=== PATIENT | female | born 1995 | race Caucasian/White ===

== ENCOUNTER → 2021-04-13 15:39 | Outpatient (CLI) | payer OTHER, SELFPAY ==
--- NOTE | 2021-04-13 18:01 | DIET.PN ---
Initial Gestational Diabetes Assessment Name: Jenise Shen Date: 04/13/21 Time: 1545-1700pm Dx: Gestational Diabetes YAIR: 05/22/21 P:1 Weeks: 34 Provider: Estefani Brown PMH: PCOS Jenise presents today for initial diabetes education. She has been checking blood sugars and made nutrition changes. Most meals are within carb goal. Some meals low in protein and vegetables. Lunch seems to be largest meal of the day, resulting in some elevated glucose. States this is often when she ?overeats? carb portions. Has some nutrition questions about reflux. Soon after OGTT she switched care from [place] to [facility]. States she is much happier with care, despite not being ideal to change care in third trimester. No DM ed previous to today. Has questions about BG goals and hypoglycemia. Sometimes experiencing high 60s mg/dL as fasting numbers. Not sure if she is feeling symptoms or not feeling well r/t poor sleep. Diet Recall: 630a: egg sausage sandwich or burrito or ? biscuit with gravy 930-1130a: salad or 2 cutie oranges 5992-4045: 1c (or more some days) pasta with beef or fish with 1/2c rice (or more) or ?-3/4c beans with veg and ham 1400: trail mix or hot pocket (70g CHO) 7422-2956: beef burritos or pizza or same as lunch Beverages 5L water Anthropometrics: Ht: 5? Wt: 172# prepg wt: 152# Wt changes: +30# Recs: Sustain current weight Physical Activity: walks dogs in afternoon for 30-60 min. sedentary work day. c/o knee pain. H/o PT for knee which helped. Interested in trying PT exercises with resistance bands for knee. Self-Monitoring Blood Glucose: All FBG in goal. All after breakfast and dinner readings within goal. 2/7 elevated pc lunch readings r/t higher carb intake, possible lower protein intake. No recent hypoglycemia. Date Pre Post Pre Post Pre Post 04/07 76 117 136 124 8/1 77 110 129 121 8/2 77 109 164 H 120 8/3 73 87 140 94 8/4 74 97 150 H 98 8/5 70 119 129 91 8/6 78 111 111 Labs: 3 hr OGTT 85, 209 H, 220 H, 97 Medications: PNV Recommendations: Carbohydrates: Daily: 180-195g Meal: 45-60g lunch and dinner; 30g breakfast Snack: 15-30g Nutrition Diagnosis: - Altered nutrition related lab value r/t GDM dx aeb recent OGTT - Excessive carb intake r/t nutrition knowledge deficit around carb counting aeb diet recall and elevated BG - Inconsistent protein intake r/t nutrition knowledge deficit aeb diet recall and elevated BG Intervention: This participant was very receptive. Provided appropriate educational handouts. Discussed the following topics: - GDM pathophyiology and impact of hyperglycemia on mom and baby - Risk for T2DM for mom and baby in the future - PCOS impact on insulin resistance - hypoglycemia s/s - Plate Method, meal timing, carb counting, pairing macronutrients and spreading out CHO for better BG mgmnt - Adding vegetables more consistently - BG goals (FBG: <95 and 1 hour <140 mg/dL); importance of checking BG 4x per day (FBG and pc) - Impact of macronutrients on BG - Rec servings for CHO at meals and snacks - Brainstormed appropriate meal plan based on her food preferences - Role of physical activity and following provider guidelines for safety - ways to reduce reflux, etiology of reflux during Goals: - Have protein with each meal and snack - Measure carb portions, especially at lunch - Try resistance exercises safely Follow-up: [facility] follow-up in two weeks Next visit topics: OGTT, HgA1c, reducing risk Vivian Arboleda RDN, BRITTANEY Certified Diabetes Care and Artificial Foliage Arranger T: [phone] F: [phone] [email or web address] Thank you for this referral :
== END ==
PROVIDERS: PCP Nurse Practitioner Obstetrics & Gynecology; Referring Provider Nurse Practitioner Obstetrics & Gynecology; Visit Provider Nurse Practitioner Obstetrics & Gynecology
DX: O24.419 Gestational diabetes mellitus in pregnancy, unspecified control (principal); Z3A.34 34 weeks gestation of pregnancy; Z71.3 Dietary counseling and surveillance
CPT/HCPCS: G0108

== ENCOUNTER → 2021-04-24 14:03 | Outpatient (CLI) | payer OTHER, SELFPAY ==
--- NOTE | 2021-04-24 14:05 | DIET.PN ---
Gestational Diabetes Assessment Name: Jenise Shen Date: 04/24/21 Time: 6429-7067 Dx: Gestational Diabetes YAIR: 05/22/21 P:0 Weeks: 36 Provider: Estefani Brown PMH: PCOS Jenise presents today for follow-up diabetes education. States she has been pairing protein and carb for snacks. Increased cheese intake, which has impacted reflux. Taking Pepcid, which helps. Had one elevation recently after breakfast (cereal, no protein). States she plans to breastfeed. Carb intake seems to range from 165-190g per day. Sometimes skipping carbs at breakfast. Has started her leave from work. Anthropometrics: Ht: 5? Wt: 175# prepg wt: 152# Wt changes: +30# Recs: Sustain current weight Physical Activity: Resistance bands packed right now so has not tried using. Using a supportive band for knee pain, which has helped. Feeling heavier at this stage of . Experiencing lightening crotch and tightness with walks. Less walking recently. Endorses good hydration, 90-120oz water daily. Self-Monitoring Blood Glucose: All but one pc reading within range. Date Pre Post Pre Post Pre Post 04/18 74 155 cereal 88 103 04/19 72 110 110 105 04/20 78 119 106 99 04/21 77 123 78 124 04/22 73 110 141 04/23 74 93 110 102 04/24 72 83 101 Labs: 3 hr OGTT 85, 209 H, 220 H, 97 Medications: PNV Recommendations: Carbohydrates: Daily: 180-195g Meal: 45-60g lunch and dinner; 30g breakfast Snack: 15-30g Intervention: This participant was very receptive. Provided appropriate educational handouts. Discussed the following topics: - Review of pairing protein and carb and impact on BG - Options for protein adding to cereal - Plate Method - Physical activity safety - recommendations: blood sugar checks, OGTT, HgA1c - Ways to reduce chances of T2DM for mom and baby: nutrition, phys activity, - What is HgA1c - Risk GDM in future pregnancies Goals: - Have protein with each meal and snack -75% met - Measure carb portions, especially at lunch- met - Try resistance exercises safely- not met - Get OGTT 6-12 weeks - check BG 6 weeks : 2 x per week (fasting goal <100 and 2 hour pc <140 mg/dL) - HgA1c q 1-3 years Follow-up: [facility] follow-up coltonn Vivian Arboleda, EVA, BRITTANEY Certified Diabetes Care and Director Of Instrumental Music T: [phone] F: [phone] [email or web address] Thank you for this referral
== END ==
PROVIDERS: PCP Nurse Practitioner Obstetrics & Gynecology; Referring Provider Nurse Practitioner Obstetrics & Gynecology; Visit Provider Nurse Practitioner Obstetrics & Gynecology
DX: O24.419 Gestational diabetes mellitus in pregnancy, unspecified control (principal); Z3A.36 36 weeks gestation of pregnancy; Z71.3 Dietary counseling and surveillance
CPT/HCPCS: G0108

== ENCOUNTER → 2021-04-28 10:15 | Outpatient (ROUT) | payer OTHER, SELFPAY | PROVIDERS: PCP Nurse Practitioner Obstetrics & Gynecology; Visit Provider Nurse Practitioner Obstetrics & Gynecology | DX: Z34.90 Encounter for supervision of normal pregnancy, unspecified, unspecified trimester (principal); Z36.85 Encounter for antenatal screening for Streptococcus B; Z3A.36 36 weeks gestation of pregnancy | CPT/HCPCS: 87081 ==

== ENCOUNTER 2021-05-21 16:22 | Inpatient (IN) | payer OTHER, SELFPAY ==
--- NOTE | 2021-05-21 17:11 | P.HPOB_ITS ---
OB HPI Date/Time Date of admission: 05/21/21 Date Patient Seen: 05/21/21 Time Patient Seen: 17:11 History of Present Condition Chief complaint: OBSERVATION : 1 Para: 0 Estimated Date of Delivery: 05/22/21 Estimated Gestational Age (weeks): 39.6wk Narrative: Jenise Shen is a 25 year old female @ 39wks 6days by early US. Contractions started last might that v steadily progressed in frequency and intensity. Lots of FM. no VB or LOF. Transferred in to [facility] care @ [address] [facility]. 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 Was followed by [facility] for serial growth ultrasounds which she declined after 32 weeks. Growth has been appropriate overall with limbs in the 1-2%. Jenise desires a low intervention and her partner, Lambert is present and supportive. History of Present care: good care, initiated at week # (8) and pounds weight gain (28) Dating criteria: based on 1st trimester US only Ultrasounds: normal 1st trimester US, normal mid trimester US and abnormal US findings (FL <1%, HL 2%) Obstetrical complications: gestational diabetes (GDMA1) Medical complications: none Preadmission Labs Blood type: O (+) positive -: Antibody screen: negative, GBS status: negative, HBsAG: negative, HIV: negative and RPR/VDLR: negative -: Rubella: immune and Varicella: immune HCT: 30.4 HCAB: negative 3 hr GTT: 3 hr (85/209/220/97) Evaluation Evaluation Baseline heart rate: 150 Variability: Moderate (11-25) monitor accelerations: Absent Monitor Decelerations: Absent Contraction Frequency (minutes): 4 Uterine Contraction Intensity: Moderate Category of Tracing: Reactive Status: Category l Cervical dilation (cm): 4 Cervical effacement (%): 80 station: -2 PFS Medical History (Updated 05/21/21 @ 17:49 by Estefani Orr CNM) Anemia affecting first Gestational diabetes mellitus (GDM) affecting , antepartum History of PCOS Social History (Updated 05/21/21 @ 17:46 by Estefani Orr CNM) marital status: unmarried,living together household members: significant other lives independently: Yes caregiver/support person: No Smoking Status: Never smoker substance use type: does not use Meds Home Medications and Allergies Home Medications Medication Instructions Recorded Confirmed Type ferrous sulfate 325 mg (65 mg mg 05/21/21 History iron) tablet (FeroSul) Allergies Allergy/AdvReac Type Severity Reaction Status Date / Time No Known Drug Allergies Allergy Verified 05/21/21 17:47 Review of Systems Review of Systems ROS: Yes All systems reviewed with the patient and are negative except as otherwise documented Exam Vital Signs (past 8 hours): BP 108/69mmHg, HR 106bpm, T 36.5C Temporal Presentation: vertex Objective Labs Result Diagrams: 05/21/21 17:50 Labs: SARS-CoV-2: negative Assessment and Plan Assessment and Plan Assessment and Plan narrative: A: Term [place] Approaching active labor Fetus with shortened limbs, otherwise normal US findings No indication for GBS prophylaxis Cat I FHR P: Admit, routine orders. May switch to intermittent auscultation. Labor support, PRN. Reassess in 4 hours or sooner, PRN. Consulted Peds OC/ and notified her of US findings.
[2021-05-21 18:04] LABS: Add Manual Diff / Slide Review NO; Basophils Absolute Auto 0 /uL (0-100); Basophils Percent Auto 0.2 % (0-2); Eosinophils Absolute Auto 0 /uL (0-450); Eosinophils Percent Auto 0.1 % (2-4); Hematocrit 33.1 % (36-46); Hemoglobin 11.5 g/dL (12.0-16.0); Lymphocytes Absolute Auto 1200 /uL (1100-4500); Mean Corpuscular HGB Conc 34.7 % (30-36); Mean Corpuscular Hemoglobin 31.1 PG (26-34); Mean Corpuscular Volume 89.8 fL (80-100); Monocytes Absolute Auto 1000 /uL (0-900); Monocytes Percent Auto 8.7 % (3-14); Neutrophils Absolute Auto 8700 /uL (1500-7000); Platelet Count 186 X10^3/uL (150-400); Red Blood Cell Count 3.69 X10^6/uL (4.0-5.2); Red Cell Distribution Width 12.6 % (11.6-14.8); White Blood Cell Count 10.9 X10^3/uL (4.5-11.0)
[2021-05-21 18:44] LABS: COVID19 - ADMIT (NP swab/PCR) Negative (Negative)
--- NOTE | 2021-05-21 19:20 | PM.OBPNLAB ---
Date/Time Date Patient Seen: 05/21/21 Time Patient Seen: 19:20 Pain Control Pain control: tolerating well Comments: Breathing through regular contractions. A little frustrated that things are progressing slowly, but coping well. No VB or LOF. Pelvic Exam Dilation (cm): 4.5 Effacement (%): 85 station: -2 Contractions Contractions on admission: regular Monitor mode: External Pitocin rate (mU/min): 0 Contraction frequency (min): 4 Contraction duration (min): 1 Contraction pattern: Regular Contraction intensity: Moderate Status status: Category l Heart Rate Baseline: 150 Monitor Accelerations: Present Monitor Decelerations: Absent Monitor Variability: Moderate Assessment and Plan Assessment: other (Approaching active labor) Plan: continuous present management
--- NOTE | 2021-05-21 23:58 | PM.OBPNLAB ---
Date/Time Date Patient Seen: 05/21/21 Time Patient Seen: 23:58 Pain Control Pain control: tolerating well Comments: Jenise is laboring in bed, breathing well through contractions with supportive partner at bedside. Has labored in tub and on ball. Jenise reports contractions became more intense in tub prior to getting into bed. Is considering requesting AROM and is interested in ways to speed labor. BP: 113/75 mmHg, HR: 101 bpm, T: 36.2 c temporal Pelvic Exam Dilation (cm): 5 Effacement (%): 90 station: -2 Amniotic membrane status: Intact Contractions Monitor mode: External Contraction frequency (min): 4 Contraction duration (min): 80 Contraction pattern: Regular Contraction intensity: Moderate Status status: Category l Heart Rate Baseline: 150 Monitor Accelerations: Present Monitor Decelerations: Absent Monitor Variability: Moderate Comments: FHR has remained reassuring by intermittent auscultation Assessment and Plan Assessment: active labor Plan: continuous present management Comments: Jenise will try nitrous oxide for pain management now, may desire AROM if nitrous helps her cope with contractions. Anticipatory guidance given for risks and benefits of AROM, will preform if requested given SVE with head well applied to cervix. Will reassess in 4 hrs or sooner PRN
[2021-05-22] MEDS: LACTATED RINGERS 1,000 ML 100 ML IV ×2 (01:15→02:23)
--- NOTE | 2021-05-22 03:32 | PM.OBPNLAB ---
Date/Time Date Patient Seen: 05/22/21 Time Patient Seen: 03:32 Pain Control Pain control: epidural Comments: After using nitrous oxide for pain relief Jenise requested an epidural. Epidural was placed and she is now laboring in bed with moderate pain relief during contractions. Jenise wishes to sleep for the next hour and declines augmentation of her labor until then Pelvic Exam Dilation (cm): 5 Effacement (%): 100 station: -2 Amniotic membrane status: Intact Contractions Monitor mode: External Contraction frequency (min): 3 Contraction duration (min): 1 Contraction pattern: Regular Contraction intensity: Moderate Status status: Category l Heart Rate Baseline: 155 Monitor Accelerations: Present Monitor Decelerations: Absent Monitor Variability: Moderate Assessment and Plan Assessment: active labor Plan: continuous present management and begin patient augmentation Comments: Counseled on slow progress of labor and recommendation to start augmentation at this time. Will start pitocin in 1 hr. Reassess in 4 hrs or sooner prn.
[2021-05-22] MEDS: OXYTOCIN PREMIX 30 UNIT/500 ML PLAST..BAG IV (04:32)
[2021-05-22] MEDS: FENT 2MCG/ML BUPIV 0.125% EPI 200 MCG/100 ML PLAST..BAG 12 MCG EPIDURAL (06:56)
--- NOTE | 2021-05-22 07:13 | PM.OBPNLAB ---
Date/Time Date Patient Seen: 05/22/21 Time Patient Seen: 07:13 Pain Control Pain control: epidural (patchy on the lower left, has been working with anesthesia for improved labor analgesia) Comments: Jenise is in bed on her left side, breathing calmly through contractions. Continues to decline AROM. States pitocin has definitely made things strongr. BP 102/60mmHg, HR 98bpm, RR 18/min, T 36.6C Temporal. Pelvic Exam Dilation (cm): 7 Effacement (%): 100 station: -2 Amniotic membrane status: Bulging Contractions Contractions on admission: regular Monitor mode: External Pitocin rate (mU/min): 3 Contraction frequency (min): 2 Contraction duration (min): 1 Contraction pattern: Regular Contraction intensity: Moderate Status status: Category l Heart Rate Baseline: 150 Monitor Accelerations: Present Monitor Decelerations: Absent Monitor Variability: Moderate Assessment and Plan Assessment: active labor Plan: continuous present management
--- NOTE | 2021-05-22 11:38 | PM.OBPRVD ---
Events: Gestational Diabetes (GDMA1), Labor Augmentation and Meconium Stained Fluid Labor & Delivery Delivery date: 05/22/21 Intrapartal Events: None Cervical ripening method: none Induction method: none Delivery augmentation: pitocin Delivery monitor: external FHT and external uterine Route of delivery: L&D Laceration Description: Perineal - 1st Degree Delivery repair: chromic (3.0) Estimated blood loss (mL): 300 Anesthesia Type: Epidural and Other (NO2) Narrative: Jenise progressed to complete with pitocin augmentation and began to feel rectal pressure with contractions. Jenise experienced a break through pain window on her left side despite position changes and pushing PCEA button. Continued to use nitrous oxide for pain relief with moderate relief. She began pushing on her side, moving baby well with coaching. She also pushed using the support of the squat bar for several contractions before returning to left lateral. FHT cat 1 during first stage, cat 2 during second stage for small variable decelerations during contractions. Jenise brought baby down well to . Head delivered with pushing, baby was in CALE position. Left anterior shoulder dystocia present. RT paged to bedside. Shoulder released with Gurmeet maneuver and maternal push. [place] placed onto maternal abdomen for drying and stimulation. Terminal meconium noted. Cord was clamped and cut by SNM at 30 seconds, spontaneous cry during cut. Cord blood collected. Apgars were 8 and 9. Active management of third stage was done with IV pitocin. [place] placenta delivered spontaneously and intact. Fundus firm and bleeding minimal after placenta delivered. First degree perineal laceration repaired using chromic 3.0 with lidocaine for pain relief. EBL 300 mL. Baby 1: gender: Female Presentation: vertex Position: Left Occiput Anterior Placenta delivery description: Spontaneous and Normal Configuration Cord Vessel Description: 3 Vessels score (1 min): 8 score (5 min): 9 weight: 3.904 kg Plan for aftercare: Routine care
[2021-05-22] MEDS: KETOROLAC 30 MG/ML VIAL IV (14:16)
[2021-05-22] MEDS: LANOLIN OINT 7 GM 1 APPLIC TOP (14:16)
[2021-05-22] MEDS: DERMOPLAST SPRAY 20% 60 ML 1 SPRAY TOP (14:16)
[2021-05-22] MEDS: IBUPROFEN 600 MG TABLET PO (22:25)
[2021-05-23] MEDS: IBUPROFEN 600 MG TABLET PO (04:44)
[2021-05-23] MEDS: DOCUSATE 100 MG CAPSULE PO (09:16)
--- NOTE | 2021-05-23 12:28 | PM.OBDS.1 ---
Discharge Providers Provider Date of admission: 05/21/21 16:22 Discharge Date: 05/23/21 Primary care physician: Estefani Orr CNM Consults: 05/23/21 11:36 Consult to Program/Music Director Routine Comment: Discharge provider: Estefani Orr CNM Summary Hospital Course Date Patient Seen: 05/23/21 Time Patient Seen: 12:29 Diagnoses: o80 Hospital Course: PPD1 Jenise is voiding, ambulating and now independently. Has been struggling with as her daughter has a vigorous latch and her right nipple is blistered. Jenise is tolerating a general diet and her pain is well controlled with PO medication. Bleeding is light without clots. FOB is present and supportive and they are feeling ready for discharge to home this afternoon. Peripartum Data Delivery Method: Natural Vaginal Laceration Description: None Episiotomy description: None complications: none [place] 1: Gender: Female Status at Discharge Cognitive/behavioral status at discharge: oriented and calm Functional status at discharge: independent ambulation Overall status at discharge: patient is progressing back to baseline Time Spent with Patient Time attestation: Total time spent providing and/or coordinating discharge services: Time spent: Less than 30 minutes Specific discharge activities: teaching Objective Labs Result Diagrams: 05/21/21 17:50 Exam Vital Signs (past 8 hours): BP 101/74mmHg, HR 81bpm, RR 16/min, T 97.2F Temporal Other: Fundus firm @ u, lochia small, no clots. Perineum well approximated, mild edema. Discharge Plan Discharge Plan Patient Disposition: Home Discharge orders & Medications Prescriptions: New ibuprofen 600 mg Tablet 600 mg PO Q6HR PRN (Reason: Pain, Mild (1-3)) 14 Days Qty: 60 RF: 0 Discontinued ferrous sulfate [FeroSul] 325 mg (65 mg iron) tablet 325 mg PO DAILY RF: 0 Follow up/Referrals: Estefani Orr CNM [Primary Care Provider] - (Follow-up up by Telehealth 06/04/21 @ 0900 Follow-up in office 07/02/21 @ 1000) Diet/Activity/Treatments Diet: Diet as Tolerated and Regular Activity: pelvic rest x 6 weeks Skin/Wound/Dressing Care Report to your healthcare provider any signs of infection, such as:: chills, fever, increased pain, unusual drainage and unusual redness Visit Report/Discharge Packet Instructions: Depression Discharge Data Primary Care Provider: Estefani Orr
[2021-05-23 13:04] VITALS: BP 101/74; PULSE 81; RESP 16; TEMP 36.2
== END 2021-05-23 14:40 | disposition home or self-care (01) | DRG 807 ==
PROVIDERS: Admitting Provider Nurse Practitioner Obstetrics & Gynecology; PCP Nurse Practitioner Obstetrics & Gynecology; Referring Provider Nurse Practitioner Obstetrics & Gynecology; Visit Provider Nurse Practitioner Obstetrics & Gynecology
DX: O24.420 Gestational diabetes mellitus in childbirth, diet controlled (principal); Z37.0 Single live birth; Z3A.39 39 weeks gestation of pregnancy; O70.0 First degree perineal laceration during delivery; O77.0 Labor and delivery complicated by meconium in amniotic fluid; O66.0 Obstructed labor due to shoulder dystocia
CPT/HCPCS: 01967; 36415; 59050; 85025; 86850; 86900; 86901; 87635; C9803; G0379; J1885; J2590